=== PATIENT | female | born 1975 | race African-American/Black ===

== ENCOUNTER 2018-01-24 02:33 | Emergency (ER) | payer OTHER ==
[~2018-01-24] VITALS: Ht 165.1 cm; Wt 108.9 kg
[2018-01-24 02:40] VITALS: Ht 165.1 cm; Wt 108.9 kg
[2018-01-24 03:37] VITALS: BP 142/97
== END 2018-01-24 03:38 | disposition home or self-care (01) ==
LOC: ED 02:33
DX: S05.02XA Injury of conjunctiva and corneal abrasion without foreign body, left eye, initial encounter (principal); S05.01XA Injury of conjunctiva and corneal abrasion without foreign body, right eye, initial encounter; I10 Essential (primary) hypertension; X58.XXXA Exposure to other specified factors, initial encounter; Y93.89 Activity, other specified; Y92.89 Other specified places as the place of occurrence of the external cause; Y99.8 Other external cause status